=== PATIENT | female | born 1950 | race Caucasian/White ===

== ENCOUNTER 2016-09-04 15:23 | Inpatient (IN) | payer OTHER, MEDICARE ==
[~2016-09-04] VITALS: Ht 149.9 cm; Wt 58.7 kg
[2016-09-10] MEDS ORDERED: AMIT8CAP6 PO (14:19)
[2016-09-10] MEDS ORDERED: HYDR-3583 PO (14:19)
[2016-09-10] MEDS ORDERED: DULO1CAP3 PO (14:19)
[2016-09-10] MEDS ORDERED: GABA300C5 PO (14:19)
[2016-09-10] MEDS ORDERED: LINA145C PO (14:19)
[2016-09-10] MEDS ORDERED: SIMV40TA PO (14:20)
[2016-09-10] MEDS ORDERED: ZETI10TA5 PO (14:20)
[2016-09-10] MEDS ORDERED: ASPI1TAB69 PO (14:22)
[2016-09-10] MEDS ORDERED: ASCO500C PO (14:22)
[2016-09-10] MEDS ORDERED: ADVI200C5 PO (14:22)
[2016-09-10] MEDS ORDERED: MULT-120 PO (14:22)
[2016-09-10] MEDS ORDERED: CHOL5000 PO (14:22)
[2016-09-10] MEDS ORDERED: LACTCAP8 PO (14:22)
[2016-09-12] VITALS (8 sets, daily range): BP systolic 116–128; BP diastolic 57–69; PULSE 63–76; RESP 16–18; TEMP 97.8–98.6; O2SAT 93–99
[2016-09-12] MEDS ORDERED: NEOSTIGMINE 3 MG/3 ML SYR IV ONE (12:01)
[2016-09-12] MEDS ORDERED: PROPOFOL 200 MG/20 ML AMP IV ONE (12:01)
[2016-09-12] MEDS ORDERED: ONDANSETRON HCL 4 MG/2 ML VIAL IV PUSH ONE (12:01)
[2016-09-12] MEDS ORDERED: LACTATED RINGER'S 1000 ML INJ 1,000 ML IV ONE (12:01)
[2016-09-12] MEDS ORDERED: ePHEDrine/NS 50 MG/5 ML SYR IV ONE (12:01)
--- NOTE | 2016-09-12 12:15 | PD.HP.UP ---
H&P Update Note The Pre-Admit History and Physical Examination regarding the above named patient was reviewed (including, but not limited to, vital signs, heart, lungs, co-morbid conditions), and upon re-examination it is noted that: the patient's condition has not significantly changed since the last examination. Mitzi Fajardo MD Sep 12, 2016 12:15
[2016-09-12] MEDS ORDERED: INSULIN HUMAN REGULAR 1,000 UNITS/10 ML VIAL SQ PRN (12:45)
[2016-09-12] MEDS ORDERED: DEXT 5%-NACL 0.9% 1000 ML INJ 1,000 ML IV SCH (12:45)
[2016-09-12] MEDS ORDERED: LACTATED RINGER'S 1000 ML IV SCH (12:45)
[2016-09-12] MEDS ORDERED: METOPROLOL TARTRATE 25 MG TAB PO PRN (12:45)
[2016-09-12] MEDS ORDERED: SODIUM CHLORID 0.9% 500 ML IV SCH (12:45)
[2016-09-12] MEDS ORDERED: fentaNYL CITRATE 250 MCG/5 ML AMP ONE ×2 (12:52→18:00)
[2016-09-12] MEDS ORDERED: MIDAZOLAM HCL 2 MG/2 ML VIAL ONE (12:52)
[2016-09-12] MEDS ORDERED: FAMOTIDINE 20 MG/2 ML VIAL ONE (12:52)
[2016-09-12] MEDS ORDERED: DICLOFENAC SODIUM 37.5 MG/ML VIAL IV PUSH ONE (12:52)
[2016-09-12] MEDS ORDERED: DEXAMETHASONE SOD PHOS 4 MG/ML VIAL ONE (12:53)
[2016-09-12] MEDS ORDERED: HYDROmorphone HCL PF 2 MG/ML VIAL ONE (12:53)
[2016-09-12] MEDS ORDERED: ACETAMINOPHEN 1000 MG/100 ML VIAL IV ONE (12:56)
[2016-09-12] MEDS ORDERED: ceFAZolin 2 GM PREMIX 50 ML IV SCH (13:00)
[2016-09-12] MEDS ORDERED: METRONIDAZOLE 500 MG/100 ML ISONTONIC SOLN IV ONE (13:00)
[2016-09-12] MEDS ORDERED: SODIUM CHLORIDE 0.9% FLUSH 5 ML FLUSH IVF PRN (17:30)
[2016-09-12] MEDS ORDERED: ACETAMINOPHEN 325 MG TAB PO PRN (17:30)
[2016-09-12] MEDS ORDERED: BENZOCAINE 6 MG/MENTHOL 10 MG LOZENGE SUCK-ON PRN (17:30)
[2016-09-12] MEDS ORDERED: KETOROLAC TROMETHAMINE 30 MG/ML (IVP) VIAL IVP PRN (17:30)
[2016-09-12] MEDS ORDERED: POTASSIUM CHLOR 20 MEQ PREMIX 100 ML IV PRN (17:30)
[2016-09-12] MEDS ORDERED: POTASSIUM CHLOR 40 MEQ PREMIX 100 ML IV PRN (17:30)
[2016-09-12] MEDS ORDERED: diphenhydrAMINE HCL 50 MG/ML VIAL IV PRN (17:30)
[2016-09-12] MEDS ORDERED: NALOXONE HCL 0.4 MG/ML AMP IV PRN (17:30)
[2016-09-12] MEDS ORDERED: ENALAPRILAT 2.5 MG/2 ML VIAL IV PRN (17:30)
[2016-09-12] MEDS ORDERED: Post-op Orders (for Pharmacy) MISC XX ONE (17:30)
[2016-09-12] MEDS ORDERED: ENALAPRILAT 1.25 MG/ML VIAL IV PRN (17:30)
[2016-09-12] MEDS ORDERED: ONDANSETRON HCL 4 MG/2 ML VIAL IV PRN (17:30)
[2016-09-12] MEDS ORDERED: DO NOT ADM ANY ANTICOAGULANT DRUGS XX PRN (17:48)
[2016-09-12] MEDS ORDERED: D5-NS + KCL 20 MEQ INJ 1,000 ML ONE (18:06)
[2016-09-12 18:22] LABS: BICARBONATE 26.4 MEQ/L (21.0-32.0); POTASSIUM 3.7 MEQ/L (3.5-5.1)
[2016-09-12 18:43] LABS: HEMATOCRIT 39.2 % (35.0-46.0); MEAN CELL VOLUME 101.2 FL (80.0-100.0); MEAN CORPUSCULAR HEMOGLOBIN 33.4 PG (27.0-34.0); PLATELET COUNT 349 TH/MM3 (150-450); RED BLOOD COUNT 3.87 MIL/MM3 (4.00-5.30); RED CELL DISTRIBUTION WIDTH 14.5 % (11.6-17.2); WHITE BLOOD COUNT 14.6 TH/MM3 (4.0-11.0)
[2016-09-12] MEDS: D5-NS + KCL 20 MEQ INJ 1,000 ML IV SCH (18:50)
[2016-09-12 19:23] LABS: HEMO FLAGS AUTO DIFF
[2016-09-12] MEDS: MORPHINE SULFATE 30 MG/30 ML PCA IV SCH (19:37)
[2016-09-12] MEDS: SODIUM CHLORIDE 0.9% FLUSH 5 ML FLUSH IVF SCH (21:00)
[2016-09-12] MEDS: GABAPENTIN 300 MG CAP PO SCH (21:00)
[2016-09-12 21:25] LABS: BANDS 1 % (0-6); PLATELET ESTIMATE SMEAR NORMAL (NORMAL); PLATELET MORPHOLOGY NORMAL (NORMAL); POLYS (SEG NEUTROPHILS) 95 % (16-70); SCAN/DIFF FINAL DIFF MANUAL; WBC DIFF SAMPLE 100
[2016-09-12] MEDS: PCA - TOTAL MG MORPHINE DELIVERED PER SHIFT SCH (22:00)
[2016-09-12] MEDS: metroNIDAZOLE 500 MG INJ 100 ML IV SCH (23:38)
[2016-09-13] VITALS (26 sets, daily range): BP systolic 134–167; BP diastolic 63–77; PULSE 56–96; RESP 17–20; TEMP 97.8–99.1; O2SAT 92–97
[2016-09-13] MEDS: D5-NS + KCL 20 MEQ INJ 1,000 ML IV SCH ×3 (02:00→23:48)
[2016-09-13] MEDS: PCA - TOTAL MG MORPHINE DELIVERED PER SHIFT SCH ×3 (06:00→22:00)
[2016-09-13] MEDS: metroNIDAZOLE 500 MG INJ 100 ML IV SCH ×2 (06:06→14:49)
[2016-09-13 06:21] LABS: BICARBONATE 27.9 MEQ/L (21.0-32.0); POTASSIUM 3.9 MEQ/L (3.5-5.1)
[2016-09-13 07:01] LABS: AUTOMATED NEUTROPHIL # 13.7 TH/MM3 (1.8-7.7); BASOPHIL % 0.1 % (0.0-2.0); HEMATOCRIT 36.8 % (35.0-46.0); HEMO FLAGS DIFF FINAL; LYMPH % 5.4 % (9.0-44.0); LYMPHOCYTE # 0.8 TH/MM3 (1.0-4.8); MEAN CELL VOLUME 99.2 FL (80.0-100.0); MEAN CORPUSCULAR HEMOGLOBIN 33.3 PG (27.0-34.0); MEAN CORPUSCULAR HGB CONC 33.5 % (32.0-36.0); MONO % 7.1 % (0.0-8.0); NEUT % 87.4 % (16.0-70.0); PLATELET COUNT 307 TH/MM3 (150-450); RED BLOOD COUNT 3.71 MIL/MM3 (4.00-5.30); RED CELL DISTRIBUTION WIDTH 14.8 % (11.6-17.2); WHITE BLOOD COUNT 15.7 TH/MM3 (4.0-11.0)
--- NOTE | 2016-09-13 08:52 | HHI.PR ---
Subjective Remarks POD#1 s/p robotic tiffani/LAR comfortable nausea last pm, none now Objective Vital Signs Date Time Temp Pulse Resp B/P Pulse Ox O2 Delivery O2 Flow Rate FiO2 09/13/16 07:54 96 Nasal Cannula 4.00 09/13/16 06:00 62 09/13/16 06:00 17 09/13/16 05:00 82 09/13/16 04:00 59 09/13/16 03:00 56 09/13/16 03:00 97.9 71 17 134/71 96 09/13/16 02:00 80 09/13/16 01:00 84 09/13/16 00:00 61 09/12/16 23:00 66 09/12/16 23:00 98.1 65 16 128/61 93 09/12/16 22:00 68 09/12/16 22:00 22 09/12/16 21:00 63 09/12/16 20:50 97.8 63 18 116/57 94 09/12/16 20:41 98.1 73 12 121/56 92 Nasal Cannula 4 09/12/16 20:30 72 12 118/58 92 Nasal Cannula 4 09/12/16 20:15 73 12 121/56 92 Nasal Cannula 4 09/12/16 20:00 73 12 117/51 91 Nasal Cannula 4 09/12/16 19:45 84 12 129/49 90 Aerosol Mask 35 09/12/16 19:37 16 09/12/16 19:30 83 12 147/74 90 Aerosol Mask 35 09/12/16 19:15 75 12 151/75 92 Aerosol Mask 50 09/12/16 19:00 80 12 133/78 90 Aerosol Mask 40 09/12/16 18:45 87 12 162/84 90 Aerosol Mask 40 09/12/16 18:30 87 12 191/72 99 Nasal Cannula 4 09/12/16 18:18 50 09/12/16 18:15 79 12 184/99 99 Mechanical Ventilator 40 09/12/16 18:00 63 12 171/79 99 Mechanical Ventilator 50 09/12/16 17:44 97.5 73 12 133/68 99 Mechanical Ventilator 50 09/12/16 17:44 50 09/12/16 11:59 98.6 76 16 128/69 94 I/O 09/12/16 09/12/16 09/12/16 09/13/1621/17 1/21/17 07:00 15:00 23:00 07:00 15:00 23:00 Intake Total 2903 ml 1804 ml Output Total 450 ml 300 ml Balance 2453 ml 1504 ml Intake Oral 240 ml IV Total 403 ml 1564 ml Other 2500 ml Output Urine Total 300 ml 300 ml Estimated Blood Loss 150 ml # Bowel Movements 0 Result Diagram: 09/13/16 0528 09/13/16527 Objective Remarks Abdomen soft, nondistended, tender Dressings c/d/i Assessment and Plan Assessment and Plan 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
[2016-09-13] MEDS: SODIUM CHLORIDE 0.9% FLUSH 5 ML FLUSH IVF SCH ×2 (09:00→20:37)
[2016-09-13] MEDS: PANTOPRAZOLE SODIUM 40 MG VIAL IVP SCH (09:38)
[2016-09-13] MEDS: HEPARIN SODIUM - SQ 10,000 UNITS/ML VIAL SQ SCH (16:25)
[2016-09-13] MEDS: GABAPENTIN 300 MG CAP PO SCH (20:37)
[2016-09-14] VITALS (36 sets, daily range): BP systolic 103–169; BP diastolic 59–87; PULSE 73–102; RESP 17–20; TEMP 98.8–101.6; O2SAT 86–98
[2016-09-14] MEDS: D5-NS + KCL 20 MEQ INJ 1,000 ML IV SCH ×2 (01:42→07:40)
[2016-09-14] MEDS: HEPARIN SODIUM - SQ 10,000 UNITS/ML VIAL SQ SCH ×2 (04:38→16:03)
[2016-09-14] MEDS: PCA - TOTAL MG MORPHINE DELIVERED PER SHIFT SCH ×3 (05:55→22:00)
[2016-09-14 06:10] LABS: AUTOMATED NEUTROPHIL # 10.5 TH/MM3 (1.8-7.7); BASOPHIL % 0.2 % (0.0-2.0); EOSINOPHIL % 0.3 % (0.0-4.0); HEMATOCRIT 38.3 % (35.0-46.0); HEMO FLAGS DIFF FINAL; LYMPH % 6.4 % (9.0-44.0); LYMPHOCYTE # 0.8 TH/MM3 (1.0-4.8); MEAN CELL VOLUME 98.6 FL (80.0-100.0); MEAN CORPUSCULAR HEMOGLOBIN 33.3 PG (27.0-34.0); MEAN CORPUSCULAR HGB CONC 33.8 % (32.0-36.0); MONO % 6.6 % (0.0-8.0); NEUT % 86.5 % (16.0-70.0); PLATELET COUNT 273 TH/MM3 (150-450); RED BLOOD COUNT 3.88 MIL/MM3 (4.00-5.30); RED CELL DISTRIBUTION WIDTH 14.9 % (11.6-17.2); WHITE BLOOD COUNT 12.2 TH/MM3 (4.0-11.0)
[2016-09-14 06:24] LABS: BICARBONATE 26.9 MEQ/L (21.0-32.0); POTASSIUM 3.6 MEQ/L (3.5-5.1)
[2016-09-14] MEDS: SODIUM CHLORIDE 0.9% FLUSH 5 ML FLUSH IVF SCH ×2 (09:00→20:03)
[2016-09-14] MEDS: PANTOPRAZOLE SODIUM 40 MG VIAL IVP SCH (09:46)
--- NOTE | 2016-09-14 12:59 | HHI.PR ---
Subjective Remarks POD#2 s/p robotic tiffani/LAR comfortable tolerating clears Objective Vital Signs Date Time Temp Pulse Resp B/P Pulse Ox O2 Delivery O2 Flow Rate FiO2 09/14/16 07:46 93 Nasal Cannula 3.00 09/14/16 07:15 99.2 85 19 159/78 93 09/14/16 06:17 75 09/14/16 05:55 16 09/14/16 05:25 83 09/14/16 04:07 75 09/14/16 04:00 99.0 75 20 155/78 92 09/14/16 03:00 73 09/14/16 02:00 77 09/14/16 01:00 86 09/14/16 00:00 99.3 77 20 166/87 92 09/14/16 00:00 77 09/13/16 23:00 77 09/13/16 22:00 74 09/13/16 22:00 16 09/13/16 21:00 85 09/13/16 20:40 93 Nasal Cannula 3.00 09/13/16 20:00 99.0 71 20 167/77 92 09/13/16 20:00 71 09/13/16 19:00 71 09/13/16 18:06 76 09/13/16 17:00 72 09/13/16 16:00 69 09/13/16 15:00 99.1 77 20 146/67 93 09/13/16 15:00 77 09/13/16 14:00 82 09/13/16 14:00 20 09/13/16 13:00 68 I/O 09/13/16 09/13/16 09/13/16 09/14/16 09/14/16 09/14/16 07:00 15:00 23:00 07:00 15:00 23:00 Intake Total 1804 ml 2300 ml 1620 ml Output Total 300 ml 700 ml 1800 ml Balance 1504 ml 1600 ml -180 ml Intake Oral 240 ml 800 ml 420 ml IV Total 1564 ml 1500 ml 1200 ml Output Urine Total 300 ml 700 ml 1800 ml # Bowel Movements 0 0 0 Result Diagram: 09/14/16 0507 09/14/16 0507 Objective Remarks Abdomen soft, nondistended, tender wounds clean Assessment and Plan Assessment and Plan d/c emmanuel/stent advance diet decrease IVF Lasix - watch BP Mitzi Fajardo MD Sep 14, 2016 12:59
[2016-09-14] MEDS ORDERED: RESP: ALBUTEROL 2.5 MG/3 ML NEB (PRN) NEB (13:15)
[2016-09-14] MEDS: MORPHINE SULFATE 30 MG/30 ML PCA IV SCH (16:55)
[2016-09-14] MEDS: FUROSEMIDE 20 MG/2 ML VIAL IV PUSH SCH (17:42)
[2016-09-14] MEDS: GABAPENTIN 300 MG CAP PO SCH (20:03)
[2016-09-15] VITALS (25 sets, daily range): BP systolic 110–158; BP diastolic 71–85; PULSE 62–89; RESP 16–24; TEMP 98.7–99.1; O2SAT 93–98
[2016-09-15] MEDS: HEPARIN SODIUM - SQ 10,000 UNITS/ML VIAL SQ SCH ×2 (03:49→17:22)
[2016-09-15] MEDS: PCA - TOTAL MG MORPHINE DELIVERED PER SHIFT SCH (05:25)
[2016-09-15 07:16] LABS: BICARBONATE 25.4 MEQ/L (21.0-32.0); POTASSIUM 3.7 MEQ/L (3.5-5.1)
[2016-09-15] MEDS: SODIUM CHLORIDE 0.9% FLUSH 5 ML FLUSH IVF SCH ×2 (09:47→21:11)
[2016-09-15] MEDS: PANTOPRAZOLE SODIUM 40 MG VIAL IVP SCH (09:47)
[2016-09-15] MEDS: FUROSEMIDE 20 MG/2 ML VIAL IV PUSH SCH ×2 (09:48→17:22)
[2016-09-15] MEDS: ACETAMINOPHEN/HYDROcodone 325 MG/5 MG TAB PO PRN ×3 (09:54→21:18)
[2016-09-15 10:58] LABS: AUTOMATED NEUTROPHIL # 8.8 TH/MM3 (1.8-7.7); BASOPHIL % 0.2 % (0.0-2.0); EOSINOPHIL % 0.5 % (0.0-4.0); HEMATOCRIT 38.6 % (35.0-46.0); HEMO FLAGS DIFF FINAL; LYMPH % 7.7 % (9.0-44.0); LYMPHOCYTE # 0.8 TH/MM3 (1.0-4.8); MEAN CELL VOLUME 98.3 FL (80.0-100.0); MEAN CORPUSCULAR HEMOGLOBIN 33.7 PG (27.0-34.0); MEAN CORPUSCULAR HGB CONC 34.3 % (32.0-36.0); MONO % 5.5 % (0.0-8.0); NEUT % 86.1 % (16.0-70.0); PLATELET COUNT 261 TH/MM3 (150-450); RED BLOOD COUNT 3.92 MIL/MM3 (4.00-5.30); RED CELL DISTRIBUTION WIDTH 14.6 % (11.6-17.2); WHITE BLOOD COUNT 10.2 TH/MM3 (4.0-11.0)
--- NOTE | 2016-09-15 14:55 | HHI.PR ---
Subjective Remarks POD#3 s/p robotic tiffani/LAR comfortable Objective Vital Signs Date Time Temp Pulse Resp B/P Pulse Ox O2 Delivery O2 Flow Rate FiO2 09/15/16 09:33 95 Nasal Cannula 4.00 09/15/16 08:00 99.1 73 18 158/85 98 09/15/16 08:00 73 09/15/16 06:06 77 09/15/16 05:28 75 09/15/16 05:25 20 09/15/16 04:00 98.8 75 18 145/72 96 09/15/16 04:00 75 09/15/16 03:00 75 09/15/16 02:00 74 09/15/16 01:00 88 09/15/16 00:00 98.7 87 18 110/73 97 09/15/16 00:00 87 09/14/16 23:00 87 09/14/16 22:14 98.8 09/14/16 22:00 88 09/14/16 22:00 22 09/14/16 21:00 87 09/14/16 20:16 95 Simple Mask 8.00 09/14/16 20:13 98 Simple Mask 10.00 09/14/16 20:05 101.6 93 18 103/59 98 09/14/16 20:00 92 09/14/16 19:00 87 09/14/16 18:50 127/70 09/14/16 18:00 100 09/14/16 17:00 102 09/14/16 16:55 20 09/14/16 16:51 93 Simple Mask 10.00 09/14/16 16:00 98 09/14/16 15:07 91 09/14/16 15:00 101.3 98 17 167/80 86 I/O 09/14/16 09/14/16 09/14/16 09/15/16 09/15/16 09/15/16 07:00 15:00 23:00 07:00 15:00 23:00 Intake Total 1620 ml 1321 ml 780 ml Output Total 1800 ml 1800 ml 1600 ml Balance -180 ml -479 ml -820 ml Intake Oral 420 ml 360 ml 420 ml IV Total 1200 ml 961 ml 360 ml Output Urine Total 1800 ml 1800 ml 1600 ml # Bowel Movements 0 0 Result Diagram: 09/15/16 1026 09/15/16 0633 Objective Remarks Abdomen soft, nondistended, tender wounds clean Assessment and Plan Assessment and Plan Encourage pulmonary toilet Mobilize HL IV D/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
[2016-09-15] MEDS: GABAPENTIN 300 MG CAP PO SCH (21:10)
[2016-09-16] VITALS (23 sets, daily range): BP systolic 126–159; BP diastolic 62–87; PULSE 61–108; RESP 18–24; TEMP 98.4–99.1; O2SAT 92–96
[2016-09-16] MEDS: HEPARIN SODIUM - SQ 10,000 UNITS/ML VIAL SQ SCH ×2 (04:34→17:25)
[2016-09-16] MEDS: SODIUM CHLORIDE 0.9% FLUSH 5 ML FLUSH IVF SCH ×2 (09:55→21:00)
[2016-09-16] MEDS: PANTOPRAZOLE SODIUM 40 MG VIAL IVP SCH (09:55)
[2016-09-16] MEDS: FUROSEMIDE 20 MG/2 ML VIAL IV PUSH SCH ×2 (09:56→17:24)
--- NOTE | 2016-09-16 13:41 | HHI.PR ---
Subjective Remarks POD#4 s/p robotic tiffani/LAR comfortable. tolerating diet Objective Vital Signs Date Time Temp Pulse Resp B/P Pulse Ox O2 Delivery O2 Flow Rate FiO2 09/16/16 11:30 68 09/16/16 11:30 98.7 68 18 159/76 95 09/16/16 08:10 96 Nasal Cannula 2.00 09/16/16 08:06 73 09/16/16 08:06 98.4 73 22 148/80 96 09/16/16 06:00 72 09/16/16 05:00 63 09/16/16 04:00 71 09/16/16 04:00 98.4 71 24 159/87 94 09/16/16 03:00 67 09/16/16 02:00 69 09/16/16 01:00 61 09/16/16 00:00 98.8 71 20 153/77 95 09/16/16 00:00 65 09/15/16 23:00 70 09/15/16 22:00 62 09/15/16 21:00 72 09/15/16 20:00 99.0 82 24 146/71 95 09/15/16 20:00 82 09/15/16 18:00 89 09/15/16 17:00 76 09/15/16 16:00 77 09/15/16 15:30 98.8 83 16 157/77 93 09/15/16 15:30 83 09/15/16 15:00 71 09/15/16 14:00 79 I/O 09/15/16 09/15/16 09/15/16 09/16/16 09/16/16 09/16/16 07:00 15:00 23:00 07:00 15:00 23:00 Intake Total 780 ml 980 ml 1450 ml Output Total 1600 ml 1450 ml 1575 ml Balance -820 ml -470 ml -125 ml Intake Oral 420 ml 980 ml 1450 ml IV Total 360 ml 0 ml Output Urine Total 1600 ml 1450 ml 1575 ml # Bowel Movements 0 0 0 Result Diagram: 09/15/16 1026 09/15/16 0633 Objective Remarks Abdomen soft, nondistended, tender wounds clean Assessment and Plan Assessment and Plan doing well wean O2 Hopefully home in am Mitzi Fajardo MD Sep 16, 2016 13:40
[2016-09-16] MEDS: ACETAMINOPHEN/HYDROcodone 325 MG/5 MG TAB PO PRN (20:58)
[2016-09-16] MEDS: GABAPENTIN 300 MG CAP PO SCH (20:59)
[2016-09-17] VITALS: BP 141/75; PULSE 68; RESP 18; TEMP 98.1; O2SAT 97
[2016-09-17 04:30] VITALS: BP 145/74; PULSE 73; RESP 18; TEMP 98.2; O2SAT 95
[2016-09-17] MEDS: HEPARIN SODIUM - SQ 10,000 UNITS/ML VIAL SQ SCH ×2 (04:45→16:32)
[2016-09-17] MEDS: ACETAMINOPHEN/HYDROcodone 325 MG/5 MG TAB PO PRN ×2 (04:47→11:16)
--- NOTE | 2016-09-17 07:43 | MP ---
cc: PAO AVERY DATE OF SURGERY 09/12/2016 PREOPERATIVE DIAGNOSIS Colonic stricture. POSTOPERATIVE DIAGNOSIS Colonic stricture. PROCEDURE Cystoscopy, bilateral ureteral catheter placement. SURGEON MD Bennie ANESTHESIA General endotracheal tube. FLUIDS 100 cc crystalloid. ESTIMATED BLOOD LOSS No blood loss. COMPLICATIONS No complications. DRAINS Two bilateral 5-Canadian open-ended ureteral catheters and a 16-Canadian Rothman. CONDITION She tolerated the procedure well. INDICATIONS FOR PROCEDURE Michaela Saba is a 65-year-old female with a history of a colonic stricture, elected to undergo robotic colectomy by Dr. Fajardo. Request was made for bilateral ureteral catheter placement. PROCEDURE The patient was brought to the operating room, identified by myself as Michaela Saba. She was placed in the dorsal lithotomy position, prepped and draped in the usual sterile fashion, received preprocedure antibiotics and general endotracheal tube anesthesia was administered. A 22-Canadian cystoscope was inserted in the bladder. Choe cystoscopy not reveal any abnormalities. The left ureteral orifice was identified and a 5-Canadian open-ended catheter was inserted up the left ureteral orifice. Initially there is some difficulty and then an 0.035 Sensor wire was passed through the open-ended catheter and then the catheter slid up without difficulty. The right ureteral orifice was identified and a 5-Canadian open-ended catheter was slid up on the right side without difficulty. A 16-Canadian Rothman was inserted. She tolerated the procedure well. Pao Avery SWT/SSB /2:13 PM /7:28 AM
[2016-09-17 07:51] VITALS: BP 156/84; PULSE 81; RESP 14; TEMP 98.4; O2SAT 93
--- NOTE | 2016-09-17 08:23 | HHI.PR ---
Subjective Remarks POD#5 s/p robotic tiffani/LAR wants to go home Objective Vital Signs Date Time Temp Pulse Resp B/P Pulse Ox O2 Delivery O2 Flow Rate FiO2 09/17/16 07:51 98.4 81 14 156/84 93 09/17/16 04:30 98.2 73 18 145/74 95 09/17/16 00:00 98.1 68 18 141/75 97 09/16/16 22:30 Nasal Cannula 2.00 09/16/16 20:00 82 09/16/16 20:00 99.1 78 18 128/75 92 09/16/16 18:00 79 09/16/16 17:00 69 09/16/16 16:00 83 09/16/16 15:30 98.4 68 20 126/62 95 09/16/16 15:30 108 09/16/16 15:00 84 09/16/16 14:00 72 09/16/16 13:00 70 09/16/16 12:00 68 09/16/16 11:30 68 09/16/16 11:30 98.7 68 18 159/76 95 09/16/16 11:00 66 09/16/16 10:00 81 09/16/16 09:00 67 I/O 09/16/16 09/16/16 09/16/16 09/17/16 09/17/16 09/17/16 07:00 15:00 23:00 07:00 15:00 23:00 Intake Total 1450 ml 720 ml 100 ml Output Total 1575 ml 1150 ml 275 ml Balance -125 ml -430 ml -175 ml Intake Oral 1450 ml 720 ml 100 ml IV Total 0 ml Output Urine Total 1575 ml 1150 ml 275 ml # Bowel Movements 0 0 Result Diagram: 09/15/16 1026 09/15/16 0633 Objective Remarks Abdomen soft, nondistended, tender wounds clean Assessment and Plan Assessment and Plan Home today with supplemental oxygenation Mitzi Fajardo MD Sep 17, 2016 08:23
[2016-09-17] MEDS ORDERED: HYDR-3516 PO (08:27)
[2016-09-17 08:36] VITALS: O2SAT 92
--- NOTE | 2016-09-17 09:21 | MP ---
cc: LEONEL YOUNG MD, KATHLEEN M.D. AGNONE, LOUIS M. MD DATE OF SURGERY September 12, 2016 PREOPERATIVE DIAGNOSIS Colon stricture POSTOPERATIVE DIAGNOSES 1. Colon stricture. 2. Adhesions. PROCEDURE 1. Robotic lysis of adhesions. 2. Robotic low anterior resection. SURGEON MD Scotty BAFFLE INSTALLER Antonio. ANESTHESIA General per ET tube. ESTIMATED BLOOD LOSS 100 cc. OPERATIVE INDICATIONS The patient is a 65-year-old female with a symptomatic colon stricture. OPERATIVE COURSE The patient was brought to the operating room, and placed in the supine position. After induction of general anesthesia, the patient was placed in Lam stirrups and all bony prominences were carefully padded. Dr. Gato Avery then came in and performed cystoscopy with placement of bilateral ureteral catheters - please see his operative note for details. A site was then chosen for the camera, being located to the right and above the umbilicus. A 10/12 trocar was placed at this location under direct vision, using a laparoscope. CO2 insufflation was then undertaken and a brief abdominal survey was performed. There was no notation of anything that would preclude the robotic approach. The liver did have some pitting but was overall with no masses or other worrisome areas. The gallbladder appeared normal. The proximal colon was mildly dilated. The remainder of the colon looked fine. The patient had a large amount of sigmoid colon that was adherent down into the pelvic area. The remainder of the trocars were then placed as follows: The #1 10/12 trocar was placed just inside the right anterior superior iliac spine. The #5 assist port was placed just under the right costal margin, equal distance between #1 and the camera port. A da Zelda port was placed on line with the left anterior axillary line, and the #2 port was placed just above the umbilical line in the left midclavicular line, between the anterior axillary and left midclavicular line. The patient was positioned with head down and slightly to the right and the small bowel was brought up and out of the pelvis, and to the right side of the bowel. The patient was noted to have quite a bit of redundancy of her descending and sigmoid colon and I felt that I would not need to take down the splenic flexure. The peritoneum on the right was scored and a window was made posterior to the inferior mesenteric vessels. Dissection continued in this plane, trying to get better visualization of the ureter. However, due to ectatic vessels and other unusual anatomy I did not have any good visualization so I elected to proceed with the lateral approach. The sigmoid colon was retracted to the right and the lateral peritoneal attachments of sigmoid and the descending colon were dissected free until I was eventually able to identify the ureter and dissected until I met my previous dissection space. The sigmoid colon was then retracted again to the left and a window was made around the vessels, just distal to their takeoff from the aorta. A vascular load was then placed across the vessels, held for 30 seconds, fired and removed. Dissection then continued in the posterior plane, dissecting free the posterior pelvic peritoneum down to the level of the mid to distal rectum. Dissection continued up and around the right side, easily down to our previous dissection margin on the left side where the sigmoid colon was more adherent. The dissection continued down the left lateral pelvic gutter, gradually and slowly dissecting free the phlegmon from the left pelvic sidewall. However, at this point it was very difficult to tell distally where the rectum lay. A sponge stick was placed in the rectum and the vagina and the plane between the rectum and the vagina was carefully and slowly dissected free, using electrocautery. Eventually we were able to free the plane up completely, being careful to protect the left ureter as it coursed fairly close to the area of inflammation. Eventually we had the distal rectum dissected free just below the peritoneal reflection. The mesentery was cleared circumferentially and a sponge stick was placed in the bowel. I felt that the 29 EEA stapler was the appropriate size; this was placed into the anus and advanced to the rectum without difficulty. A site was then chosen for division of the rectum, where the mesentery had been divided and a reload of the [place] endostapler was placed across this bowel at this level. A second reload was necessary to complete the transection. The 29 EEA stapler was again advanced to the rectal stump and lay nicely without tension and in a nice orientation. A small amount of fibrofatty tissue was cleared from the bowel. The proximal bowel was brought down and came down nicely into the pelvis without tension. All dissection beds were examined and found to be without significant bleeding. I did open up the mesentery a little bit on the descending colon to have it lie in a better orientation. The robot was then undocked. A 10-12-cm suprapubic incision was made using electrocautery. Dissection was carried down to the fascia of the anterior abdominal wall. It was split the length of the skin incision. The medial fibers of the rectus abdominis muscle were then divided using electrocautery, and the posterior fascia/peritoneum was divided the length of the skin incision as well. A wound protector was then placed, and the proximal stapled end of the bowel was grasped and pulled up and out through the wound protector. A site was then chosen for proximal division of bowel, where the bowel came down nicely against the pubic tubercle and there was minimal diverticular disease. The mesentery at this level was serially divided and ligated using 0 Vicryl ties, and the pursestring stapling device was placed across the bowel at this level. The distal bowel was occluded with a Riley clamp. The bowel was amputated sharply. The anvil from the 29 EEA stapler was placed into the cut end of the bowel, and the previously placed pursestring suture was then secured. The specimen was then taken to a back table where it was opened and, although it was quite tortuous and constricted, there was no sign of any cancer. After gentle digital dilatation of the anus, the EEA stapler was then advanced again through the anus and up to the rectal stump. The spike was then advanced just posterior to the staple line. The anvil was into the spike, being careful that the bowel was not twisted. The stapler was then closed, held for 30 seconds, fired and removed, creating an enteroenterotomy. Both anastomotic rings appeared to be complete and the enteroenterotomy appeared pink and healthy circumferentially. A small amount warm normal saline was placed into the pelvis and the proximal bowel. With digital pressure air, was insufflated into the rectum until gentle tension was noted on the anastomosis, with no sign of any leakage noted. The air was desufflated to the extent possible, as was the saline suctioned out of the pelvis. The bowel lay in a nice orientation without tension. The posterior fascia at the suprapubic site was closed in a running fashion using #1 PDS, and the anterior fascia was closed in a running fashion using #1 PDS. CO2 insufflation was then resumed and the 06/04 trocar sites at the umbilical and right lower quadrant area were then closed using the fascial closure device and 0 Vicryl suture. These sutures were placed but not tied until CO2 was removed from the peritoneal cavity. The fascial sutures were then secured. All wounds were copiously irrigated with warm normal saline. The skin at the suprapubic incision was closed in a running subcuticular fashion using 3-0 Vicryl and the wounds at the trocar sites were closed in an interrupted subcuticular fashion using 3-0 Vicryl. The right ureteral stent was then removed. Steri-Strips and sterile dressings were then applied. All sponge, needle and instrument counts were correct and the patient was returned to the Post-Anesthesia Care Unit in stable condition. MD ALEJANDRINA Renteria/SSB /5:29 PM /8:51 AM MTDChristine
[2016-09-17] MEDS: FUROSEMIDE 20 MG/2 ML VIAL IV PUSH SCH ×2 (09:48→10:01)
[2016-09-17] MEDS: SODIUM CHLORIDE 0.9% FLUSH 5 ML FLUSH IVF SCH (10:00)
[2016-09-17] MEDS: PANTOPRAZOLE SODIUM 40 MG VIAL IVP SCH (10:01)
--- NOTE | 2016-09-17 10:05 | HHI.FF ---
Face to Face Verification Diagnosis: (1) Colon stricture (2) Hypoxemia requiring supplemental oxygen I have seen patient Michaela Saba on 09/17/16. My clinical findings support the need for the requested home health care services because: Patient has SOB Deconditioned w/ increased weakness I certify that my clinical findings support that this patient is homebound because: Postoperative weakness and hypoxemia Post-op weakness Mitzi Fajardo MD Sep 17, 2016 10:05
[2016-09-17 11:37] VITALS: BP 137/76; PULSE 82; RESP 17; TEMP 98.8; O2SAT 94
[2016-09-17] MEDS ORDERED: OXYGENTANK NAS.CANULA (13:45)
[2016-09-17 15:35] VITALS: BP 112/66; PULSE 84; RESP 18; TEMP 98.8; O2SAT 94
--- NOTE | 2017-01-21 12:40 | MD ---
cc: SUSANNAH CHRISTIAN M.D. ADMISSION DATE: 09/12/2016 DISCHARGE DATE: 09/17/2016 ADMISSION DIAGNOSIS Colon stricture DISCHARGE DIAGNOSIS Colon stricture PROCEDURES 1. Cystoscopy with placement of bilateral ureteral catheters. 2. Robotic extensive lysis of adhesions. 3. Robotic low anterior resection. HOSPITAL COURSE The patient was admitted to the hospital on the August, after an outpatient bowel prep. She underwent the above-named procedures. Intraoperative findings included a stricture at the mid sigmoid with fairly dense adhesions. Postoperatively, the patient did well with rapid return of bowel and bladder function. She was discharged to home on the August after an outpatient bowel prep. She was noted to have some problems with her COPD exacerbation with need for oxygen and was sent home with home oxygen. Final pathology was consistent with diverticulosis with constriction. MD ALEJANDRINA Renteria/ZAIRE /10:22 AM /12:38 PM POLY
== END 2016-09-17 18:35 | disposition home or self-care (01) | DRG 330 ==
LOC: HSDI 09-12 11:11 → HCPC 09-12 20:47
PROVIDERS: ADMIT Colon & Rectal Surgery; ATTEND Colon & Rectal Surgery
PROC: 8E0W4CZ Robotic Assisted Procedure of Trunk Region, Percutaneous Endoscopic Approach (ICD-10-PCS; 2016-09-12)
PROC: 0T788DZ Dilation of Bilateral Ureters with Intraluminal Device, Via Natural or Artificial Opening Endoscopic (ICD-10-PCS; 2016-09-12)
PROC: 0DBN4ZZ Excision of Sigmoid Colon, Percutaneous Endoscopic Approach (ICD-10-PCS; principal; 2016-09-12 13:05)
PROC: 0DNW4ZZ Release Peritoneum, Percutaneous Endoscopic Approach (ICD-10-PCS; 2016-09-12 13:05)
DX: K56.5 Intestinal adhesions [bands] with obstruction (postinfection) (principal); Q43.8 Other specified congenital malformations of intestine; E78.5 Hyperlipidemia, unspecified; F17.210 Nicotine dependence, cigarettes, uncomplicated; Z88.2 Allergy status to sulfonamides
CPT/HCPCS: 80048; 85007; 85025; 85027; 86850; 86900; 86901; 88307; 88309; 94150; 94620; 94640; 94664; C1769; C9113; J0131; J0690; J1100; J1130; J1170; J1644; J1940; J2250; J2270; J2405; J2710; J3010; J3480; J7120; J7613